=== PATIENT | female | born 1990 | race Caucasian/White ===

== ENCOUNTER → 2018-07-08 | Outpatient (CLI) | payer OTHER ==
[2018-07-08 15:02] LABS: MICROSCOPIC NOT IND
[2018-07-08 15:04] LABS: CULTURE INDICATED? NO
== END | disposition home or self-care (01) ==
LOC: LAB 14:38
PROVIDERS: ATTEND Hospitalist
DX: N39.0 Urinary tract infection, site not specified (principal)
CPT/HCPCS: 81003

== ENCOUNTER 2020-01-15 17:15 | Day surgery (SDC) | payer OTHER ==
[~2020-01-15] VITALS: Ht 175.3 cm; Wt 70.9 kg
--- NOTE | 2020-01-15 17:46 | NUR ---
C/O INCREASE URINATION SINCE YESTERDAY AND RLQ ABD PAIN.
[2020-01-15] MEDS ORDERED: SODIUM CHLORIDE FLUSH 10ML SYR IVF ONE (18:00)
--- NOTE | 2020-01-15 18:03 | NUR ---
URINE SAMPLE COLLECTED.
[2020-01-15 18:13] LABS: BASOPHILS # (AUTO) 0.02 x10^3/uL (0-0.1); BASOPHILS % (AUTO) 0 % (0-1); EOSINOPHILS % (AUTO) 0 % (1-7); LYMPHOCYTES # (AUTO) 1.11 x10^3/uL (1-3.4); LYMPHOCYTES % (AUTO) 7 % (22-44); MD NO; MEAN CORPUSCULAR HEMOGLOBIN 26.4 pg (27.0-34.8); MEAN CORPUSCULAR HGB CONC 32.6 g/dL (32.4-35.8); MEAN CORPUSCULAR VOLUME 80.9 fL (80-100); MEAN PLATELET VOLUME 10.1 fL (7.4-10.4); MONOCYTES # (AUTO) 0.53 x10^3/uL (0.2-0.8); MONOCYTES % (AUTO) 3 % (2-9); NEUTROPHILS # (AUTO) 15.48 x10^3/uL (1.8-6.8); NEUTROPHILS % (AUTO) 90 % (42-75); PLATELET COUNT 210 x10^3/uL (130-400); RED BLOOD COUNT 5.47 x10^6/uL (3.82-5.3); RED CELL DISTRIBUTION WIDTH 13.3 % (9.6-15.2)
[2020-01-15 18:17] LABS: MICROSCOPIC NOT IND
[2020-01-15 18:19] LABS: ALANINE AMINOTRANSFERASE 30 U/L (12-78); ALBUMIN 4.1 g/dL (3.4-5.0); ANION GAP 7 mmol/L (5-15); CHLORIDE 107 mmol/L (98-107); CREATININE 0.85 mg/dL (0.55-1.02)
[2020-01-15 18:24] LABS: ALKALINE PHOSPHATASE 72 U/L (45-117); BILIRUBIN,TOTAL 0.7 mg/dL (0.2-1.0); TOTAL PROTEIN 8.1 g/dL (6.4-8.2)
[2020-01-15] MEDS ORDERED: ONDANSETRON 2MG/ML, 2ML ONE ×3 (19:00→20:32)
--- NOTE | 2020-01-15 19:13 | NUR ---
PT TRANSPORTED TO CT.
[2020-01-15] MEDS ORDERED: OMNIPAQUE 350 MG/ML, 100ML BOTTLE ONE (19:28)
[2020-01-15] MEDS ORDERED: SODIUM CHLORIDE 0.9% 1,000 ML IV ONE (19:39)
[2020-01-15] MEDS ORDERED: MORPHINE SULFATE 4 MG/ML, 1ML ONE (19:50)
[2020-01-15] MEDS ORDERED: MORPHINE SULFATE 4 MG/ML, 1ML IVPush PRN (20:00)
[2020-01-15] MEDS ORDERED: SODIUM CHLORIDE 0.9% 1,000ML IVBOLUS ONE (20:00)
[2020-01-15] MEDS ORDERED: ONDANSETRON 2MG/ML, 2ML IVPush ONE (20:00)
[2020-01-15] MEDS ORDERED: CEFOTETAN PMX 2GM/50ML 50 ML IV ONE (20:00)
--- NOTE | 2020-01-15 20:02 | NUR ---
REPORT GIVEN TO OR.
--- NOTE | 2020-01-15 20:02 | NUR ---
CALL TO PHARMACY TO REQUEST ABX.
--- NOTE | 2020-01-15 20:04 | NUR ---
Pt medicated per emar, prior to being medicated pt only wanting 1mg of morphine as she has never had opiates. Pt tolerating 1mg well.
--- NOTE | 2020-01-15 20:17 | NUR ---
CALL TO [facility] PT'S SISTER PER PT'S REQUEST FOR UPDATE. PLEASE CALL LISA BACK AFTER SURGERY PER PT'S REQUEST AT [phone].
--- NOTE | 2020-01-15 20:29 | NUR ---
PT C/O INCREASE IN PAIN, 3MG MORPHINE GIVEN IV PREVIOUSLY ORDER ON eMAR.
[2020-01-15] MEDS ORDERED: OXYcodone 5 MG/5 ML ORAL.SOL UDC PO PRN (20:30)
[2020-01-15] MEDS ORDERED: FENTANYL PF 100 MCG/2ML IV PRN (20:30)
[2020-01-15] MEDS ORDERED: BUPIVACAINE/PF 0.25% ONE (20:30)
[2020-01-15] MEDS ORDERED: PROMETHAZINE 25 MG/ML, 1ML IVPush PRN (20:30)
[2020-01-15] MEDS ORDERED: PROMETHAZINE 25 MG SUPP PR PRN (20:30)
[2020-01-15] MEDS ORDERED: ONDANSETRON 2MG/ML, 2ML IVPush PRN (20:30)
[2020-01-15] MEDS ORDERED: LORazepam 2 MG/ML, 1ML IVPush PRN (20:30)
[2020-01-15] MEDS ORDERED: HYDROmorphone 1 MG/ML, 1ML INJ IVPush PRN (20:30)
[2020-01-15] MEDS ORDERED: EPINEPHRINE 1 MG/ML, 1ML ONE (20:30)
[2020-01-15] MEDS ORDERED: ACETAMINOPHEN 325 MG TABLET PO PRN (20:30)
[2020-01-15] MEDS ORDERED: MIDAZOLAM 1 MG/ML, 2ML ONE (20:31)
[2020-01-15] MEDS ORDERED: FENTANYL PF 100 MCG/2ML ONE (20:32)
[2020-01-15] MEDS ORDERED: PROPOFOL 10 MG/ML, 20ML ONE (20:32)
[2020-01-15] MEDS ORDERED: NEOSTIGMINE 1 MG/ML, 10ML ONE (20:32)
[2020-01-15] MEDS ORDERED: DEXAMETHASONE 4 MG/ML, 1ML ONE (20:32)
[2020-01-15] MEDS ORDERED: ROCURONIUM 10MG/ML,5ML ONE (20:32)
[2020-01-15] MEDS ORDERED: SUCCINYLCHOLINE 20 MG/ML, 10ML ONE (20:32)
[2020-01-15] MEDS ORDERED: CEFAZOLIN 1,000 MG ONE (20:32)
[2020-01-15] MEDS ORDERED: GLYCOPYRROLATE 0.2MG/1ML, 5ML ONE (20:32)
[2020-01-15] MEDS ORDERED: SUGAMMADEX 200 MG/2 ML IVPush ONE (21:04)
[2020-01-15] MEDS ORDERED: LIDOCAINE PF 2%, 5ML ONE (21:04)
[2020-01-15] MEDS ORDERED: BUPIVACAINE/PF-EPI 0.25% 1:200K SQ ONE (21:16)
[2020-01-15] MEDS ORDERED: KETOROLAC 30 MG/1 ML ONE (21:22)
[2020-01-15] MEDS ORDERED: OXYcodone 5 MG/5 ML ORAL.SOL UDC ONE (21:49)
[2020-01-15 22:40] VITALS: BP 117/76
[2020-01-15] MEDS ORDERED: HYDR-3240 PO (22:53)
[2020-01-15] MEDS ORDERED: HYDROcodone/APAP 5/325 TABLET PO PRN (23:00)
== END 2020-01-15 23:35 | disposition home or self-care (01) ==
LOC: ED 18:11 → UNDOADMIN 20:00 → EDIP 20:00 → ED 20:58 → EDIP 22:21 → 4NE 22:21 → ED 23:35 → UNDODISIN 23:50
PROVIDERS: ATTEND Emergency Medicine
DX: K35.80 Unspecified acute appendicitis (principal); Z20.828 Contact with and (suspected) exposure to other viral communicable diseases; M41.86 Other forms of scoliosis, lumbar region; Z88.8 Allergy status to other drugs, medicaments and biological substances
CPT/HCPCS: 36415; 44970; 74177; 80053; 81003; 83690; 84703; 85025; 87635; 88304; 96374; 96375; 99285; C1729; J0171; J0330; J0690; J1100; J1885; J2250; J2270; J2405; J2704; J2710; J3010; J3490; J7030; Q9967; G0378

== ENCOUNTER → 2020-11-22 | Outpatient (CLI) | payer OTHER ==
[~2020-11-22] MED LIST: HYDR-2214 PO
[2020-11-22 08:51] LABS: BASOPHILS % (AUTO) 1 % (0-1); EOSINOPHILS % (AUTO) 2 % (1-7); LYMPHOCYTES % (AUTO) 35 % (22-44); MEAN CORPUSCULAR HEMOGLOBIN 25.7 pg (27.0-34.8); MEAN CORPUSCULAR HGB CONC 33.2 g/dL (32.4-35.8); MEAN PLATELET VOLUME 8.8 fL (7.4-10.4); MONOCYTES % (AUTO) 7 % (2-9); NEUTROPHILS % (AUTO) 55 % (42-75); PLATELET COUNT 262 x10^3/uL (130-400); RED BLOOD COUNT 5.19 x10^6/uL (3.82-5.3); RED CELL DISTRIBUTION WIDTH 14.4 % (9.6-15.2)
[2020-11-22 09:01] LABS: ALBUMIN 3.5 g/dL (3.4-5.0); ANION GAP 3 mmol/L (5-15); CALCIUM 8.8 mg/dL (8.5-10.1); CHLORIDE 109 mmol/L (98-107); CHOLESTEROL, TOTAL 207 mg/dL (140-239)
[2020-11-22 09:27] LABS: % IRON SATURATION 35 % (20-55); ALANINE AMINOTRANSFERASE 48 U/L (12-78); ALKALINE PHOSPHATASE 70 U/L (45-117); BILIRUBIN,TOTAL 0.5 mg/dL (0.2-1.0); CHOL/HDL RATIO 3.4; CREATININE 0.48 mg/dL (0.55-1.02); FOLATE LEVEL 13.3 ng/mL (3.1-17.5); HDL CHOL % 29 % (28-40); HDL CHOLESTEROL (DIRECT) 61 mg/dL (40-60); IRON LEVEL 103 mcg/dL (50-170); LDL CHOLESTEROL,CALCULATED 126 mg/dL (54-169); LDL/HDL RATIO 2.1 (0.5-3.0); TOTAL IRON BINDING CAPACITY 295 mcg/dL (250-450); TOTAL PROTEIN 7.3 g/dL (6.4-8.2); TRIGLYCERIDES 100 mg/dL (50-200); VLDL CHOLESTEROL 20 mg/dL (0-25)
== END | disposition home or self-care (01) ==
LOC: LAB 08:27
PROVIDERS: ATTEND Nurse Practitioner Family
DX: Z00.00 Encounter for general adult medical examination without abnormal findings (principal); Z86.2 Personal history of diseases of the blood and blood-forming organs and certain disorders involving the immune mechanism; Z13.228 Encounter for screening for other metabolic disorders; Z83.3 Family history of diabetes mellitus
CPT/HCPCS: 36415; 80053; 80061; 82306; 82607; 82746; 83036; 83540; 83550; 85025; 86735; 86762; 86765